=== PATIENT | female | born 1945 | race Two or more races ===

== ENCOUNTER 2022-01-23 06:05 | Day surgery (SDC) | payer OTHER ==
[~2022-01-23 06:05] MED LIST: ATORVASTATIN CA40 MG PO; SYNTHROID75 MCG PO
== END 2022-01-23 12:45 | disposition home or self-care (01) ==
LOC: CIR.AMB 06:05
PROVIDERS: ATTEND Anesthesiology Pain Medicine
DX: M47.894 Other spondylosis, thoracic region (principal); Z20.822 Contact with and (suspected) exposure to COVID-19; J45.909 Unspecified asthma, uncomplicated; E66.9 Obesity, unspecified; E03.9 Hypothyroidism, unspecified